=== PATIENT | female | born 1975 | race Caucasian/White ===

== ENCOUNTER 2020-02-10 10:11 | Observation (INO) | payer BC ==
--- NOTE | 2020-02-10 10:44 | ED ---
General Adult HPI - General Chief complaint: Chest Pain Stated complaint: chest pain Time Seen by Provider: 02/10/20 10:15 Source: patient, RN notes reviewed, old records reviewed Mode of arrival: ambulatory Limitations: no limitations - History of Present Illness Initial comments: This is a 45-year-old female presents emergency Department with a past medical history discomfort was sharp but underlying it was pressure. Patient states today she has no sharp pain chest pressure. Patient states she's also mildly short of breath the pain radiates into her left arm and she is also occasionally been nauseous. Patient states she is also sweating but it also been very hot outside. Patient denies any cough. Patient denies any back pain or neck pain. Patient denies any abdominal pain patient denies any vomiting or diarrhea. Patient denies any recent fever. - Related Data Home Medications Medication Instructions Recorded Confirmed No Known Home Medications 04/09/18 07/21/18 Allergies Allergy/AdvReac Type Severity Reaction Status Date / Time pollen extracts Allergy WATERY, Verified 02/10/20 10:18 ITCHY EYES Review of Systems ROS Statement: Those systems with pertinent positive or pertinent negative responses have been documented in the HPI. ROS Other: All systems not noted in ROS Statement are negative. Past Medical History Past Medical History: Fibromyalgia Additional Past Medical History / Comment(s): SINUSITIS, DEVIATED SEPTUM. RECENT GUM PROCEDURE, TOOK AB RX; FACIAL LESION/RASH HEALING. SL VARICOSE VEINS. History of Any Multi-Drug Resistant Organisms: None Reported Past Surgical History: Section Additional Past Surgical History / Comment(s): C-S X4. LAPAROSCOPY. Breast augmentation, wisdom teeth extraction, biopsy in jaw. GUM SURGERY, sinus Past Anesthesia/Blood Transfusion Reactions: Motion Sickness Past Psychological History: Anxiety Smoking Status: Current every day smoker Past Alcohol Use History: Daily Past Drug Use History: Marijuana - Past Family History Mother Family Medical History: Unable to Obtain Father Family Medical History: Unable to Obtain General Exam - General Exam Comments Initial Comments: GENERAL: Patient is well-developed and well-nourished. Patient is nontoxic and well- hydrated and is in mild distress. ENT: Neck is soft and supple. No significant lymphadenopathy is noted. Oropharynx is clear. Moist mucous membranes. Neck has full range of motion without eliciting any pain. EYES: The sclera were anicteric and conjunctiva were pink and moist. Extraocular movements were intact and pupils were equal round and reactive to light. Eyelids were unremarkable. PULMONARY: Unlabored respirations. Good breath sounds bilaterally. No audible rales rhonchi or wheezing was noted. CARDIOVASCULAR: There is a regular rate and rhythm without any murmurs gallops or rubs. ABDOMEN: Soft and nontender with normal bowel sounds. SKIN: Skin is clear with no lesions or rashes and otherwise unremarkable. NEUROLOGIC: Patient is alert and oriented x3. Cranial nerves II through XII are grossly intact. Motor and sensory are also intact. Normal speech, volume and content. Symmetrical smile. Cerebellar exam grossly intact MUSCULOSKELETAL: Normal extremities with adequate strength and full range of motion. No lower extremity swelling or edema. No calf tenderness. LYMPHATICS: No significant lymphadenopathy is noted PSYCHIATRIC: Normal psychiatric evaluation. Limitations: no limitations Course Vital Signs 02/10/20 02/10/20 02/10/20 10:14 10:55 11:15 Temperature 98.1 F Pulse Rate 85 80 70 Respiratory 18 18 18 Rate Blood Pressure 116/74 101/68 100/65 O2 Sat by Pulse 100 98 99 Oximetry Medical Decision Making - Medical Decision Making EKG shows sinus tachycardia at 104 bpm UT interval 130 QRS is 84 QT interval 366 QTC is 41. Patient's EKG shows no ST segment elevation or depression. Chest x-ray shows no acute abnormality. [facility] agreed to admit the patient admitted the patient I wrote admitting orders. - Lab Data Result diagrams: 02/10/20 10:46 02/10/20 10:47 Lab Results 02/10/20 02/10/20 02/10/20 Range/Units 10:46 10:46 10:46 WBC 5.6 (3.8-10.6) k/uL RBC 4.35 (3.80-5.40) m/uL Hgb 11.8 (11.4-16.0) gm/dL Hct 37.2 (34.0-46.0) % MCV 85.5 (80.0-100.0) fL MCH 27.2 (25.0-35.0) pg MCHC 31.8 (31.0-37.0) g/dL RDW 14.1 (11.5-15.5) % Plt Count 258 (150-450) k/uL Neutrophils % 65 % Lymphocytes % 24 % Monocytes % 6 % Eosinophils % 3 % Basophils % 1 % Neutrophils # 3.6 (1.3-7.7) k/uL Lymphocytes # 1.3 (1.0-4.8) k/uL Monocytes # 0.4 (0-1.0) k/uL Eosinophils # 0.1 (0-0.7) k/uL Basophils # 0.0 (0-0.2) k/uL Hypochromasia Slight PT 9.9 (9.0-12.0) sec INR 0.9 (<1.2) APTT 21.8 L (22.0-30.0) sec D-Dimer 0.35 (<0.60) mg/L FEU Sodium (137-145) mmol/L Potassium (3.5-5.1) mmol/L Chloride (98-107) mmol/L Carbon Dioxide (22-30) mmol/L Anion Gap mmol/L BUN (7-17) mg/dL Creatinine (0.52-1.04) mg/dL Est GFR (CKD-EPI)AfAm (>60 ml/min/1.73 sqM) Est GFR (CKD-EPI)NonAf (>60 ml/min/1.73 sqM) Glucose (74-99) mg/dL Calcium (8.4-10.2) mg/dL Magnesium (1.6-2.3) mg/dL Total Bilirubin (0.2-1.3) mg/dL AST (14-36) U/L ALT (4-34) U/L Alkaline Phosphatase (38-126) U/L Troponin I <0.012 (0.000-0.034) ng/mL Total Protein (6.3-8.2) g/dL Albumin (3.5-5.0) g/dL 02/10/20 Range/Units 10:47 WBC (3.8-10.6) k/uL RBC (3.80-5.40) m/uL Hgb (11.4-16.0) gm/dL Hct (34.0-46.0) % MCV (80.0-100.0) fL MCH (25.0-35.0) pg MCHC (31.0-37.0) g/dL RDW (11.5-15.5) % Plt Count (150-450) k/uL Neutrophils % % Lymphocytes % % Monocytes % % Eosinophils % % Basophils % % Neutrophils # (1.3-7.7) k/uL Lymphocytes # (1.0-4.8) k/uL Monocytes # (0-1.0) k/uL Eosinophils # (0-0.7) k/uL Basophils # (0-0.2) k/uL Hypochromasia PT (9.0-12.0) sec INR (<1.2) APTT (22.0-30.0) sec D-Dimer (<0.60) mg/L FEU Sodium 137 (137-145) mmol/L Potassium 4.1 (3.5-5.1) mmol/L Chloride 107 (98-107) mmol/L Carbon Dioxide 22 (22-30) mmol/L Anion Gap 8 mmol/L BUN 10 (7-17) mg/dL Creatinine 0.66 (0.52-1.04) mg/dL Est GFR (CKD-EPI)AfAm >90 (>60 ml/min/1.73 sqM) Est GFR (CKD-EPI)NonAf >90 (>60 ml/min/1.73 sqM) Glucose 91 (74-99) mg/dL Calcium 9.7 (8.4-10.2) mg/dL Magnesium 1.6 (1.6-2.3) mg/dL Total Bilirubin 0.8 (0.2-1.3) mg/dL AST 32 (14-36) U/L ALT 17 (4-34) U/L Alkaline Phosphatase 52 (38-126) U/L Troponin I (0.000-0.034) ng/mL Total Protein 7.1 (6.3-8.2) g/dL Albumin 4.5 (3.5-5.0) g/dL Disposition Clinical Impression: Chest pain Disposition: ADMITTED IP TO THIS HOSP Referrals: Nonstaff,Physician [Primary Care Provider] - 1-2 days Time of Disposition: 11:45
[2020-02-10] MEDS ORDERED: NITROGLYCERIN OINT 1 INCH/GM PACKET TOPICAL STA (10:45)
[2020-02-10] MEDS ORDERED: ASPIRIN 81 MG PO STA (10:45)
[2020-02-10 10:57] LABS: Basophils % (A) 1 %; Eosinophils # (A) 0.1 k/uL (0-0.7); Eosinophils % (A) 3 %; HCT 37.2 % (34.0-46.0); HGB 11.8 gm/dL (11.4-16.0); Hypochromasia Slight; Lymphocytes # (A) 1.3 k/uL (1.0-4.8); Lymphocytes % (A) 24 %; MCH 27.2 pg (25.0-35.0); MCHC 31.8 g/dL (31.0-37.0); MCV 85.5 fL (80.0-100.0); Mean Platelet Volume 7.4; Monocytes # (A) 0.4 k/uL (0-1.0); Monocytes % (A) 6 %; Neutrophils # (A) 3.6 k/uL (1.3-7.7); Neutrophils % (A) 65 %; Platelet Count 258 k/uL (150-450); RBC 4.35 m/uL (3.80-5.40); RDW 14.1 % (11.5-15.5); WBC 5.6 k/uL (3.8-10.6)
--- NOTE | 2020-02-10 11:08 | XR ---
EXAMINATION TYPE: XR chest 2V DATE OF EXAM: 02/10/2020 COMPARISON: 04/09/2018 HISTORY: 45-year-old female with chest pain TECHNIQUE: PA and lateral views FINDINGS: The cardiomediastinal silhouette, aorta, and pulmonary vasculature are within normal limits. Lungs an d pleural spaces are clear. IMPRESSION: No acute cardiopulmonary process.
[2020-02-10 11:09] LABS: ALT 17 U/L (4-34); AST 32 U/L (14-36); African American GFR (CKD) >90 (>60 ml/min/1.73 sqM); Albumin 4.5 g/dL (3.5-5.0); Alkaline Phosphatase 52 U/L (38-126); Anion Gap 8 mmol/L; Blood Urea Nitrogen 10 mg/dL (7-17); Calcium 9.7 mg/dL (8.4-10.2); Carbon Dioxide 22 mmol/L (22-30); Chloride 107 mmol/L (98-107); Glucose 91 mg/dL (74-99); Magnesium 1.6 mg/dL (1.6-2.3); Non-African American GFR(CKD) >90 (>60 ml/min/1.73 sqM); Potassium 4.1 mmol/L (3.5-5.1); Sodium 137 mmol/L (137-145); Total Bilirubin 0.8 mg/dL (0.2-1.3); Total Protein 7.1 g/dL (6.3-8.2)
[2020-02-10 11:18] LABS: D-Dimer 0.35 mg/L FEU (<0.60); INR 0.9 (<1.2); Prothrombin Time 9.9 sec (9.0-12.0)
[2020-02-10 11:24] LABS: Partial Thromboplastin Time 21.8 sec (22.0-30.0)
[2020-02-10] MEDS ORDERED: NITROGLYCERIN SL TABS 0.4 MG TAB SUBLINGUAL PRN (11:43)
[2020-02-10] MEDS ORDERED: NITROGLYCERIN OINT 1 INCH/GM PACKET TOPICAL SCH (12:00)
--- NOTE | 2020-02-10 16:15 | P.HPIM ---
History of Present Illness This is a pleasant 45 years old female with past medical history of fibromyalgia, anxiety and depression, who presents because of chest pain. She started having chest pain yesterday about 2:30, Zofran day duration, central, radiating to the left arm associated with numbness and dyspnea. The pain subsided but she still have the feeling of pressure. No dizziness or nausea vomiting or sweating. No complaints regarding her urine or bowel habits. No fever. She smokes about half pack per day and she is working on quitting at after which she's been consult she does not want the nicotine patch. She uses medical marijuana about she has not for a while because she is back to work, no drinking alcohol She has history of anxiety and depression but she does not have symptoms of active disease and she denies suicidal ideation. Vitals stable, labs including CBC, BMP, liver enzymes, INR are unremarkable. D- dimer is negative at 0.35. Troponins 2 are negative with less than 0.012. Chest x-ray: No acute process. EKG showing sinus tachycardia at [address]-T changes and QTC of 481. Review of Systems CONSTITUTIONAL: No fever, no malaise, no fatigue. HEENT: No recent visual problems or hearing problems. Denied any sore throat. CARDIOVASCULAR: No orthopnea, PND, no palpitations, no syncope. PULMONARY: No shortness of breath, no cough, no hemoptysis. GASTROINTESTINAL: No diarrhea, no nausea, no vomiting, no abdominal pain. Normoactive bowel sounds. NEUROLOGICAL: No headaches, no weakness, no numbness. HEMATOLOGICAL: Denies any bleeding or petechiae. GENITOURINARY: Denies any burning micturition, frequency, or urgency. MUSCULOSKELETAL/RHEUMATOLOGICAL: Denies any joint pain, swelling, or any muscle pain. ENDOCRINE: Denies any polyuria or polydipsia. Past Medical History Past Medical History: Fibromyalgia, Pneumonia Additional Past Medical History / Comment(s): Fibromyalgia-"all over" and pt states causes light and sound sensitivity, sinusitis better since surgery, allergies with allergy injections, UTI/kidney infection, bilateral varicosities, needle phobia. History of Any Multi-Drug Resistant Organisms: None Reported Past Surgical History: Breast Surgery, Section Additional Past Surgical History / Comment(s): Bilateral breast augmentation, C- Sections x4, jaw bone biopsy, gum surgery, sinus surgery-ESS with sinus cyst removed, wisdom teeth extractions. Past Anesthesia/Blood Transfusion Reactions: Motion Sickness Smoking Status: Current every day smoker - Past Family History Mother Family Medical History: Unable to Obtain Additional Family Medical History / Comment(s): Pt states she does not have much of a relationship with her mother. Father Family Medical History: Unable to Obtain Additional Family Medical History / Comment(s): Pt states she has no relationship with her father. Medications and Allergies Home Medications Medication Instructions Recorded Confirmed Type Allergy Shots Unknown 1 injection SQ Q7D 02/10/20 02/10/20 History Allergies Allergy/AdvReac Type Severity Reaction Status Date / Time pollen extracts Allergy WATERY, Verified 02/10/20 11:49 ITCHY EYES Physical Exam Vitals: Vital Signs Temp Pulse Pulse Resp BP BP Pulse Ox 02/10/20 15:53 97.9 F 58 L 14 100/63 98 02/10/20 13:29 99 02/10/20 12:38 98.3 F 76 14 102/63 98 02/10/20 11:55 98.4 F 69 18 104/72 97 02/10/20 11:15 70 18 100/65 99 02/10/20 10:55 80 18 101/68 98 02/10/20 10:14 98.1 F 85 18 116/74 100 Intake and Output 02/10/20 02/10/20 02/10/20 06:59 14:59 22:59 Other: # Voids 1 Weight 60.328 kg GENERAL: The patient is alert and oriented x3, not in any acute distress. Well developed, well nourished. HEENT: Pupils are round and equally reacting to light. EOMI. No scleral icterus. No conjunctival pallor. Normocephalic, atraumatic. No pharyngeal erythema. No thyromegaly. CARDIOVASCULAR: S1 and S2 present. No murmurs, rubs, or gallops. PULMONARY: Chest is clear to auscultation, no wheezing or crackles. ABDOMEN: Soft, nontender, nondistended, normoactive bowel sounds. No palpable organomegaly. MUSCULOSKELETAL: No joint swelling or deformity. EXTREMITIES: No cyanosis, clubbing, or pedal edema. NEUROLOGICAL: Gross neurological examination did not reveal any focal deficits. SKIN: No rashes. No petechiae Results CBC & Chem 7: 02/10/20 10:46 02/10/20 10:47 Labs: Abnormal Lab Results - Last 24 Hours (Table) 02/10/20 Range/Units 10:46 APTT 21.8 L (22.0-30.0) sec Thrombosis Risk Factor Assmnt - Choose All That Apply Any of the Below Risk Factors Present?: Yes Each Factor Represents 1 point: Age 41-60 years, Varicose veins Other Risk Factors: No Other congenital or acquired thrombophilia - If yes, enter type in comment: No Thrombosis Risk Factor Assessment Total Risk Factor Score: 2 Thrombosis Risk Factor Assessment Level: Low Risk Assessment and Plan Assessment: Chest pain, rule out cardiac causes. D-dimer is negative at 0.35 Fibromyalgia History of anxiety and depression, not an active issue Plan: This is a pleasant 45 years old female who presents because of chest pain. We'l l do serial troponins. Echocardiogram. Cardiology consult. Emergency room patient was started on aspirin and we will continue with that. Labs and medication were reviewed.. Continue same treatment. Continue with symptomatic treatment. Resume home medication. Monitor lytes and vitals. DVT and GI prophylaxis. Further recommendations of the clinical course of the patient DVT prophylaxis: Subcutaneous heparin GI Prophylaxis: Pepcid Prognosis is guarded
[2020-02-10] MEDS: FAMOTIDINE 20 MG/2 ML VIAL IV SCH (20:57)
[2020-02-10] MEDS: HEPARIN SODIUM,PORCINE 5,000 UNIT/ML 1 ML VIAL SQ SCH (21:05)
[2020-02-11] MEDS: NITROGLYCERIN OINT 1 INCH/GM PACKET TOPICAL SCH ×3 (02:13→11:48)
[2020-02-11 04:24] VITALS: PULSE 60; RESP 18
[2020-02-11 06:47] LABS: Cholesterol 170 mg/dL (<200); HDL Cholesterol 76 mg/dL (40-60); LDL Cholesterol,Calculated 80 mg/dL (0-99); Triglycerides 72 mg/dL (<150)
[2020-02-11] MEDS ORDERED: ASPIRIN 325 MG TAB PO SCH (09:00)
[2020-02-11] MEDS: HEPARIN SODIUM,PORCINE 5,000 UNIT/ML 1 ML VIAL SQ SCH (09:23)
[2020-02-11] MEDS: FAMOTIDINE 20 MG/2 ML VIAL IV SCH (09:23)
--- NOTE | 2020-02-11 10:35 | ECHOF ---
Referral Reason:chest pain MEASUREMENTS -------- HEIGHT: 167.6 cm WEIGHT: 60.3 kg BP: 105/63 RVIDd: 3.2 cm (< 3.3) IVSd: 0.7 cm (0.6 - 1.1) LVIDd: 4.1 cm (3.9 - 5.3) LVPWd: 0.9 cm (0.6 - 1.1) IVSs: 1.2 cm LVIDs: 2.5 cm LVPWs: 1.3 cm LAESV Index (A-L): 20.81 ml/m Ao Diam: 2.4 cm (2.0 - 3.7) AV Cusp: 2.0 cm (1.5 - 2.6) MV EXCURSION: 26.378 mm (> 18.000) MV EF SLOPE: 83 mm/s (70 - 150) EPSS: 0.4 cm MV E Abdon: 0.73 m/s MV DecT: 205 ms MV A Abdon: 0.36 m/s MV E/A Ratio: 2.04 RAP: 5.00 mmHg RVSP: 46.19 mmHg FINDINGS -------- This was a technically adequate study. The left ventricular size is normal. Left ventricular wall thickness is normal. Overall left vent ricular systolic function is normal with, an EF between 55 - 60 %. The diastolic filling pattern is normal for the age of the patient 4.52. The right ventricle is mildly enlarged. Normal LA size by volume 22+/-6 ml/m2. The right atrium is mildly enlarged. Interatrial and interventricular septum intact. The aortic valve was not well visualized. There is no evidence of aortic regurgitation. There is no evidence of aortic stenosis. There is trace to mild mitral regurgitation. [id number] tricuspid regurgitation present. There is mild to moderate pulmonary hypertension. The right ventricular systolic pressure, as measured by Doppler, is 46.19mmHg. There is no pulmonic regurgitation present. The aortic root size is normal. The inferior vena cava is mildly dilated. There is no pericardial effusion. CONCLUSIONS -------- 1. The left ventricular size is normal. 2. Left ventricular wall thickness is normal. 3. Overall left ventricular systolic function is normal with, an EF between 55 - 60 %. 4. The diastolic filling pattern is normal for the age of the patient 4.52 5. The right ventricle is mildly enlarged. 6. The right atrium is mildly enlarged. 7. There is trace to mild mitral regurgitation. 8. [id number] tricuspid regurgitation present. 9. There is mild to moderate pulmonary hypertension. 10. The right ventricular systolic pressure, as measured by Doppler, is 46.19mmHg. 11. The inferior vena cava is mildly dilated. [employer] T[employer] ASSEMBLER: Jeannie Stockton RDCS
--- NOTE | 2020-02-11 10:59 | P.CRDCN ---
History of Present Illness Consult date: 02/11/20 Reason for Consult (text): Chest pain History of present illness: HISTORY OF PRESENTING ILLNESS This is a pleasant 45-year-old female with history of fibromyalgia who presents secondary to chest pain while at work. 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 She was at work yesterday when she started having acute onset of left-sided sharp pain which is worse with inspiration. It went down her left side into her arm. Patient became very upset and anxious over this and immediately source for aspirin. The chest pain persisted and therefore patient presented to emergency department. The chest pain gradually resolved while in the emergency department. She had workup including EKG which showed sinus tachycardia at 104 bpm, troponins negative 3, and d-dimer which was 0.35. Patient denies any chest pain today. Denies any associated nausea, shortness breath or diaphoresis. DIAGNOSTICS EKG reveals sinus tachycardia at 104 bpm, no significant ST or T-wave abnormalities.. Chest xray acute process. Laboratory reviewed, white blood cell count 5.6, hemoglobin 11.8, platelets 258, d-dimer 0.35, creatinine 0.66, troponin negative 3. LDL was 80, total cholesterol 170, HDL 76. Current cardiac medications include []. REVIEW OF SYSTEMS At the time of my exam: CONSTITUTIONAL: Denies fever or chills. CARDIOVASCULAR: + chest pain, no shortness of breath, orthopnea, PND or palpitations. RESPIRATORY: Denies cough. GASTROINTESTINAL: Denies abdominal pain, diarrhea, constipation, nausea or vomiting. MUSCULOSKELETAL: + Fibromyalgia NEUROLOGIC: Denies numbness, tingling or weakness. ENDOCRINE: Denies fatigue, weight change, polydipsia or polyurina. GENITOURINARY: Denies burning, hematuria or urgency with micturation. HEMATOLOGIC: Denies history of anemia or bleeding. PHYSICAL EXAMINATION Blood pressure 105/63 heart rate 60 bpm afebrile and maintaining oxygen satura tion on room air. CONSTITUTIONAL: No apparent distress. HEENT: Head is normocephalic. Pupils are equal, round. Sclerae anicteric. Mucous membranes of the mouth are moist. No JVD. No carotid bruit. CHEST EXAMINATION: Lungs are clear to auscultation. No chest wall tenderness is noted on palpation, + pain with deep breathing which has improved from yesterday. HEART EXAMINATION: Regular rate and rhythm. S1, S2 heard. No murmurs, gallops or rub. ABDOMEN: Soft, nontender. Positive bowel sounds. EXTREMITIES: 2+ peripheral pulses, no lower extremity edema and no calf tenderness. NEUROLOGIC EXAMINATION: Patient is awake, alert and oriented x3. ASSESSMENT 1. Atypical chest pain which is mostly pleuritic and worsened with deep inspiration. Currently resolved. Troponin negative 3 EKG normal and echo normal. 2. Fibromyalgia 3. Tobacco abuse PLAN Echo personally reviewed and normal ejection fraction without wall motion abnormalities and no significant valvular dysfunction. Troponins have been negative, d-dimer negative and no further workup required from a cardiology standpoint as an inpatient. Patient may be discharged with outpatient follow-up in 1 week with possible outpatient stress testing. Past Medical History Past Medical History: Fibromyalgia, Pneumonia Additional Past Medical History / Comment(s): Fibromyalgia-"all over" and pt states causes light and sound sensitivity, sinusitis better since surgery, allergies with allergy injections, UTI/kidney infection, bilateral varicosities, needle phobia. History of Any Multi-Drug Resistant Organisms: None Reported Past Surgical History: Breast Surgery, Section Additional Past Surgical History / Comment(s): Bilateral breast augmentation, C- Sections x4, jaw bone biopsy, gum surgery, sinus surgery-ESS with sinus cyst removed, wisdom teeth extractions. Past Anesthesia/Blood Transfusion Reactions: Motion Sickness Smoking Status: Current every day smoker - Past Family History Mother Family Medical History: Unable to Obtain Additional Family Medical History / Comment(s): Pt states she does not have much of a relationship with her mother. Father Family Medical History: Unable to Obtain Additional Family Medical History / Comment(s): Pt states she has no relationship with her father. Medications and Allergies Home Medications Medication Instructions Recorded Confirmed Type Allergy Shots Unknown 1 injection SQ Q7D 02/10/20 02/10/20 History Allergies Allergy/AdvReac Type Severity Reaction Status Date / Time pollen extracts Allergy WATERY, Verified 02/10/20 11:49 ITCHY EYES Physical Exam Vitals: Vital Signs Temp Pulse Pulse Resp BP BP Pulse Ox 02/11/20 04:12 98.1 F 60 18 105/63 100 02/10/20 20:10 98 F 80 17 103/63 97 02/10/20 15:53 97.9 F 58 L 14 100/63 98 02/10/20 13:29 99 02/10/20 12:38 98.3 F 76 14 102/63 98 02/10/20 11:55 98.4 F 69 18 104/72 97 02/10/20 11:15 70 18 100/65 99 02/10/20 10:55 80 18 101/68 98 Intake and Output 02/10/20 02/11/20 02/11/20 22:59 06:59 14:59 Other: Voiding Method Toilet Toilet # Voids 2 1 Results 02/10/20 10:46 02/10/20 10:47 Cardiac Enzymes 02/10/20 02/10/20 02/10/20 Range/Units 10:46 10:47 14:08 AST 32 (14-36) U/L Troponin I <0.012 <0.012 (0.000-0.034) ng/mL 02/10/20 Range/Units 17:13 AST (14-36) U/L Troponin I <0.012 (0.000-0.034) ng/mL Coagulation 02/10/20 Range/Units 10:46 PT 9.9 (9.0-12.0) sec APTT 21.8 L (22.0-30.0) sec Lipids 02/10/20 Range/Units 10:47 Triglycerides 72 (<150) mg/dL Cholesterol 170 (<200) mg/dL HDL Cholesterol 76 H (40-60) mg/dL CBC 02/10/20 Range/Units 10:46 WBC 5.6 (3.8-10.6) k/uL RBC 4.35 (3.80-5.40) m/uL Hgb 11.8 (11.4-16.0) gm/dL Hct 37.2 (34.0-46.0) % Plt Count 258 (150-450) k/uL Comprehensive Metabolic Panel 02/10/20 Range/Units 10:47 Sodium 137 (137-145) mmol/L Potassium 4.1 (3.5-5.1) mmol/L Chloride 107 (98-107) mmol/L Carbon Dioxide 22 (22-30) mmol/L BUN 10 (7-17) mg/dL Creatinine 0.66 (0.52-1.04) mg/dL Glucose 91 (74-99) mg/dL Calcium 9.7 (8.4-10.2) mg/dL AST 32 (14-36) U/L ALT 17 (4-34) U/L Alkaline Phosphatase 52 (38-126) U/L Total Protein 7.1 (6.3-8.2) g/dL Albumin 4.5 (3.5-5.0) g/dL Current Medications Generic Name Dose Route Start Last Admin Trade Name Freq PRN Reason Stop Dose Admin Aspirin 325 mg 02/11/20 09:00 02/11/20 09:23 Aspirin PO 325 mg DAILY UZIEL Administration Famotidine 20 mg 02/10/20 21:00 02/11/20 09:23 Pepcid IV 20 mg Q12HR UZIEL Administration Heparin Sodium (Porcine) 5,000 unit 02/10/20 21:00 02/11/20 09:23 Heparin SQ 5,000 unit Q12HR UZIEL Administration Nitroglycerin 0.4 mg 02/10/20 11:43 Nitrostat SUBLINGUAL Q5M PRN Chest Pain Nitroglycerin 1 inch 02/10/20 18:00 02/11/20 06:41 Nitro-Bid Oint TOPICAL Not Given Q6HR UZIEL Intake and Output 02/10/20 02/11/20 02/11/20 22:59 06:59 14:59 Other: Voiding Method Toilet Toilet # Voids 2 1 02/10/20 10:46 02/10/20 10:47
[2020-02-11 11:00] VITALS: BP 111/71; TEMP 97.8
[2020-02-11 12:25] VITALS: BMI 21.4
--- NOTE | 2020-02-11 23:57 | P.DS ---
Providers Date of admission: 02/10/20 11:48 Attending physician: Jose Luis Crook MD Consults: 02/10/20 11:43 Consult Physician Urgent Consulting Provider: [facility] Consult Reason/Comments: Chest pain Do you want consulting provider notified?: Yes Primary care physician: Physician Nonstaff Hospital Course: Diagnoses: Chest pain, resolved. D-dimer is negative at 0.35. Director Career Services recommended stress test as an outpatient Fibromyalgia History of anxiety and depression, not an active issue Hospital course: This is a pleasant 45 years old female with past medical history of fibromyalg ia, anxiety and depression, who presents because of chest pain. D-dimer is negative, chest pain has resolved prior to discharge. Director Career Services evaluated the patient and recommended she goes home and follow-up with him after Gerardo in 1 week for possible stress test, patient and at bedside and agree. Patient is discharged on 81 mg daily. Patient was cleared for discharge by sales host Problems and management plan were discussed with the patient and he verbalized understanding and acceptance Patient was found stable and can be discharged home however he needs follow-up as an outpatient. Patient was instructed to follow up with PCP within one week and patient agrees Gen: patient is a AAOx3, no distress CVS: S1-S2, RRR, no murmur Lungs: B/L CTA, no wheezing Abdomen: soft, no distention, no tenderness, positive bowel sounds Extremity: no leg edema or induration Time spent more than 35 minutes Plan - Discharge Summary Discharge Rx Participant: No New Discharge Prescriptions: New Aspirin 81 mg PO DAILY #30 chewable Nitroglycerin Sl Tabs [Nitrostat] 0.4 mg SUBLINGUAL Q5M PRN #20 tab PRN Reason: Chest Pain Famotidine [Pepcid] 20 mg PO BID 7 Days #14 tablet Continue Allergy Shots Unknown 1 injection SQ Q7D Discharge Medication List Allergy Shots Unknown 1 injection SQ Q7D 02/10/20 [History] Aspirin 81 mg PO DAILY #30 chewable 02/11/20 [Rx] Famotidine [Pepcid] 20 mg PO BID 7 Days #14 tablet 02/11/20 [Rx] Nitroglycerin Sl Tabs [Nitrostat] 0.4 mg SUBLINGUAL Q5M PRN #20 tab 02/11/20 [Rx] Follow up Appointment(s)/Referral(s): Tigre Carrillo DO [STAFF PHYSICIAN] - 1 Week (You will need a stress test as an outpatient.) Nonstaff,Physician [Primary Care Provider] - 1-2 days (Follow up with Dr. Flores, patient to schedule appointment.) Activity/Diet/Wound Care/Special Instructions: heart healthy diet activity is limited till you see your doctor Discharge Disposition: HOME SELF-CARE
== END 2020-02-11 13:33 | disposition home or self-care (01) ==
LOC: EC 10:11 → 3NCARDOBS 11:48
PROVIDERS: ADMIT Internal Medicine; ATTEND Internal Medicine
DX: R07.89 Other chest pain (principal); M79.602 Pain in left arm; R20.0 Anesthesia of skin; R00.0 Tachycardia, unspecified; R07.81 Pleurodynia; I08.1 Rheumatic disorders of both mitral and tricuspid valves; I27.20 Pulmonary hypertension, unspecified; I87.8 Other specified disorders of veins; M79.7 Fibromyalgia; F41.9 Anxiety disorder, unspecified; F32.9 Major depressive disorder, single episode, unspecified; J34.2 Deviated nasal septum; F17.210 Nicotine dependence, cigarettes, uncomplicated; T78.40XA Allergy, unspecified, initial encounter; I83.93 Asymptomatic varicose veins of bilateral lower extremities; F40.231 Fear of injections and transfusions; Z87.09 Personal history of other diseases of the respiratory system; Z98.890 Other specified postprocedural states; Z87.2 Personal history of diseases of the skin and subcutaneous tissue; Z98.82 Breast implant status; Z87.898 Personal history of other specified conditions; Z87.01 Personal history of pneumonia (recurrent); Z87.440 Personal history of urinary (tract) infections; Z79.899 Other long term (current) drug therapy; Z91.048 Other nonmedicinal substance allergy status
CPT/HCPCS: 96372; 96374; 96376; 99285; 36415; 93005; 93306; 85379; 80061; 80053; 83735; 84484; 85025; 85610; 85730; 71046; G0378 ×2; J1644

== ENCOUNTER → 2020-04-05 | Outpatient (CLI) | payer BC ==
--- NOTE | 2020-04-06 13:42 | MM ---
Reason for exam: screening (asymptomatic). Last mammogram was performed 5 years and 8 months ago. History: Saline implants in both breasts, 2000. Physical Findings: A clinical breast exam by your physician is recommended on an annual basis and results should be correlated with mammographic findings. MG 3D Screen Mammo Imp/Cad Bilateral CC, MLO, and ID view(s) were taken. Prior study comparison: August 10, 2014, bilateral MG diagnostic mammo w CAD ADRIANNA. The breast tissue is heterogeneously dense. This may lower the sensitivity of mammography. There is no discrete abnormality. Bilateral subpectoral implants redemonstrated. ASSESSMENT: Benign, BI-RAD 2 RECOMMENDATION: Routine screening mammogram of both breasts in 1 year.
== END | disposition home or self-care (01) ==
LOC: RADMAMWWP 15:01
PROVIDERS: ATTEND Internal Medicine
DX: Z12.31 Encounter for screening mammogram for malignant neoplasm of breast (principal)
CPT/HCPCS: 77063; 77067

== ENCOUNTER → 2021-08-09 | Outpatient (CLI) | payer BC | END | disposition home or self-care (01) | LOC: LABWHC1 07:07 | PROVIDERS: ATTEND Internal Medicine | DX: Z00.00 Encounter for general adult medical examination without abnormal findings (principal) | CPT/HCPCS: 36415; 83036 ==

== ENCOUNTER → 2022-03-04 | Outpatient (CLI) | payer BC ==
[2022-03-05 10:16] LABS: HLA B27 NEGATIVE
[2022-03-05 15:05] LABS: Lyme IgG/IgM 0.17 Index
== END | disposition home or self-care (01) ==
LOC: LABWHC1 13:32
PROVIDERS: ATTEND Physician Assistant Medical
DX: R21 Rash and other nonspecific skin eruption (principal)
CPT/HCPCS: 36415; 86039; 86618; 86812

== ENCOUNTER → 2022-04-04 | Outpatient (CLI) | payer BC, OTHER ==
--- NOTE | 2022-04-05 02:34 | MR ---
EXAMINATION TYPE: MR brain and iac wo/w con DATE OF EXAM: 04/04/2022 COMPARISON: None HISTORY: Otalgia CONTRAST: Standard multiplanar, multisequence MRI departmental protocol images were obtained without contrast a nd with 6 mL intravenous Gadavist gadolinium contrast. Diffusion images show no evidence of an acute infarct. The brainstem is intact. Ventricles have fairl y normal size. There is no mass effect or midline shift. No sign of intracranial hemorrhage. Temporal bones have normal signal pattern. No evidence of mastoiditis. The corpus callosum appears intact. Sella turcica is normal. No evidence of orbital mass. There is a 10 mm mucus retention cyst in the left side ethmoid sinus. There is a 1 cm mucous retention cyst in t he right-sided sphenoid sinus. There is 1.5 cm mucous retention cyst right side maxillary sinus. The cerebellum is intact. Internal auditory canals appear normal. No evidence of cerebellopontine ang le mass. The acoustic nerve and vestibular nerve appear normal. The contrast images show normal enhancement of the venous sinuses. There is no pathologic enhancement no pathologic posterior fossa enhancement. IMPRESSION: Negative MR scan of the brain. I do not see acute cause for otalgia.
== END | disposition home or self-care (01) ==
LOC: RADMRIMAIN 17:59
PROVIDERS: ATTEND Family Medicine
DX: H92.09 Otalgia, unspecified ear (principal)
CPT/HCPCS: 70553; A9585

== ENCOUNTER → 2022-08-28 | Outpatient (CLI) | payer OTHER ==
[2022-08-28 18:42] LABS: Basophils # (A) 0.02 X 10*3/uL (0.00-0.10); Basophils % (A) 0.4 %; Eosinophils # (A) 0.11 X 10*3/uL (0.04-0.35); HGB 10.9 g/dL (12.0-15.0); Immature Grans, Automated 0.2 %; Lymphocytes # (A) 1.24 X 10*3/uL (0.90-5.00); Lymphocytes % (A) 22.1 %; MCH 25.4 pg (27.0-32.0); MCHC 29.5 g/dL (32.0-37.0); MCV 86.2 fL (80.0-97.0); Mean Platelet Volume 9.9 fL (9.5-12.2); Monocytes # (A) 0.35 X 10*3/uL (0.20-1.00); Monocytes % (A) 6.2 %; NRBC Per 100 WBC 0 /100 WBCS (0.0-0.0); Neutrophils # (A) 3.89 X 10*3/uL (1.80-7.70); Neutrophils % (A) 69.1 %; Platelet Count 269 X 10*3/uL (140-440); RBC 4.29 X 10*6/uL (4.10-5.20); RDW 15.5 % (11.5-14.5); WBC 5.62 X 10*3/uL (4.50-10.00)
[2022-08-28 19:43] LABS: % Iron Saturation 13.93 (12.00-45.00); Iron 63 ug/dL (50-170); Total Iron Binding Capacity 454 ug/dL (228-460)
[2022-08-28 20:11] LABS: Vitamin B12 >3600.0 pg/mL (200.0-944.0)
== END | disposition home or self-care (01) ==
LOC: LABWHC1 12:59
PROVIDERS: ATTEND Physician Assistant Medical
DX: D50.9 Iron deficiency anemia, unspecified (principal)
CPT/HCPCS: 36415; 82607; 82728; 82746; 83540; 83550; 84425; 85025

== ENCOUNTER → 2022-09-23 | Outpatient (CLI) | payer OTHER ==
--- NOTE | 2022-09-24 14:53 | MM ---
Reason for Exam: Screening (asymptomatic). Last mammogram was performed 2 year(s) and 6 month(s) ago. Patient History: Menarche at age 10. First Full-Term at age 14. 2000, Bilateral Implants. Last menstrual period: 09/13/2022 Risk Values: Brittnee 5 year model risk: 0.7%. NCI Lifetime model risk: 6.6%. Prior Study Comparison: 08/10/2014 Bilateral Diagnostic Mammogram, [facility]. 04/05/2020 Bilateral Screening Mammogram, [facility]. Tissue Density: There are scattered fibroglandular densities. Findings: Analyzed By CAD. Pattern appears symmetrical and stable. Bilateral breast prostheses are present. No significant interval changes are evident. Benign calcifications in the left breast. No suspicious groups of microcalcifications, spiculated or lobular masses, architectural distortion or other secondary signs of malignancy are mammographically apparent. Overall Assessment: Benign, BI-RAD 2 Management: Screening Mammogram of both breasts in 1 year. A negative mammogram report should not preclude additional follow up of suspicious palpable abnormalities. Patient should continue monthly self breast exam. A clinical breast exam by your physician is recommended on an annual basis and results should be correlated with mammographic findings. Electronically signed and approved by: Rohan Oneil D.O. Radiologis
== END | disposition home or self-care (01) ==
LOC: RADMAMWWP 12:56
PROVIDERS: ATTEND Family Medicine
DX: Z12.31 Encounter for screening mammogram for malignant neoplasm of breast (principal)
CPT/HCPCS: 77063; 77067

== ENCOUNTER → 2022-12-23 | Outpatient (CLI) | payer OTHER ==
[2022-12-23 20:30] LABS: Basophils # (A) 0.02 X 10*3/uL (0.00-0.10); Basophils % (A) 0.3 %; Eosinophils # (A) 0.04 X 10*3/uL (0.04-0.35); Eosinophils % (A) 0.7 %; HCT 35.8 % (37.2-46.3); HGB 11.3 d/dL (12.0-15.0); Lymphocytes # (A) 0.83 X 10*3/uL (0.90-5.00); Lymphocytes % (A) 14.5 %; MCH 29.3 pg (27.0-32.0); MCHC 31.6 d/dL (32.0-37.0); MCV 92.7 FL (80.0-97.0); Mean Platelet Volume 9.8 FL (9.5-12.2); Monocytes % (A) 5.2 %; NRBC Per 100 WBC 0 X 10*3/uL (0.00-0.01); Neutrophils # (A) 4.53 X 10*3/uL (1.80-7.70); Neutrophils % (A) 79.1 %; Platelet Count 246 X 10*3/uL (140-440); RBC 3.86 X 10*6/uL (4.10-5.20); RDW 14.5 % (11.5-14.5); WBC 5.73 X 10*3/uL (4.50-10.00)
[2022-12-23 20:33] LABS: % Iron Saturation 40.34 (12.00-45.00); ALT 30 U/L (8-44); AST 33 U/L (13-35); Albumin 4.9 d/dL (3.8-4.9); Albumin/Globulin Ratio 1.96 Ratio (1.60-3.17); Alkaline Phosphatase 45 U/L (41-126); Amylase 77 U/L (23-121); BUN/Creat Ratio 8.89 Ratio (12.00-20.00); Calcium 10.1 mg/dL (8.7-10.3); Carbon Dioxide 26.9 mmol/L (21.6-31.8); Chloride 103 mmol/L (96-109); Ferritin 69.9 ng/mL (10.0-291.0); Globulin 2.5 d/dL (1.6-3.3); Glucose 99 mg/dL (70-110); Iron 167 UG/DL (50-170); Lipase 22 U/L (14-63); Potassium 4.1 mmol/L (3.5-5.5); Sodium 142 mmol/L (135-145); Total Bilirubin 0.5 mg/dL (0.3-1.2); Total Iron Binding Capacity 414 UG/DL (228-460); Total Protein 7.4 d/dL (6.2-8.2)
== END | disposition home or self-care (01) ==
LOC: LABWHC1 14:20
PROVIDERS: ATTEND Family Medicine
DX: E61.1 Iron deficiency (principal); R21 Rash and other nonspecific skin eruption; R10.9 Unspecified abdominal pain
CPT/HCPCS: 36415; 80053; 82150; 82728; 83540; 83550; 83690; 84207; 85025

== ENCOUNTER → 2023-01-01 | Outpatient (CLI) | payer OTHER ==
--- NOTE | 2023-01-01 19:34 | CT ---
EXAMINATION TYPE: CT abdomen pelvis w con CT DLP: 449.3 mGycm, Automated exposure control for dose reduction was used. DATE OF EXAM: 01/01/2023 5:11 PM COMPARISON: None CLINICAL INDICATION:Female, 47 years old with history of R10.9 UNSPECIFIED ABDOMINAL PAIN; epigastric pain TECHNIQUE: Standard CT of the abdomen and pelvis following the administration of 100 cc of Isovue 3 00 IV contrast material and oral contrast. Coronal and sagittal reformats were performed. FINDINGS: Evaluation is limited due to paucity of intraabdominal fat. LOWER CHEST: Visualized lungs are clear. Partial visualization of bilateral breast prosthesis. ABDOMEN LIVER: Unremarkable GALLBLADDER AND BILE DUCTS: Unremarkable. PANCREAS: Unremarkable. SPLEEN: Unremarkable. ADRENAL GLANDS: Unremarkable. KIDNEYS AND URETERS: No evidence of hydronephrosis or renal calculus. The knees enhance symmetrically . Contrast is demonstrated within both collecting systems on the delayed phase. PELVIS BLADDER: Unremarkable REPRODUCTIVE: Unremarkable. ABDOMEN & PELVIS STOMACH AND BOWEL: Stomach and duodenum are unremarkable . No focal bowel wall thickening or surround ing inflammatory changes. Of the moderate amount of stool present within the proximal colon. Enteric contrast reaches the transverse colon. Gas is demonstrated within the distal colon extending into the rectum. No evidence of bowel obstruction. PERITONEUM: No evidence of pneumoperitoneum or free fluid. VASCULATURE: No evidence of aortic aneurysm. Few pelvic phleboliths. MUSCULOSKELETAL: No acute osseous abnormalities. Mild disc degeneration changes are present throughou t the thoracolumbar spine. This is most pronounced at L4-L5. LYMPH NODES: No gross evidence for lymphadenopathy. SOFT TISSUE/ABDOMINAL WALL: Unremarkable IMPRESSION: 1. No acute abdominal/pelvic process. 2. Mild to moderate colonic stool burden. Correlate for constipation.
== END | disposition home or self-care (01) ==
LOC: RADCTMAIN 15:05
PROVIDERS: ATTEND Family Medicine
DX: R10.9 Unspecified abdominal pain (principal)
CPT/HCPCS: 74177; Q9967